=== PATIENT | male | born 1965 | race Caucasian/White ===

== ENCOUNTER 2020-06-01 10:27 | Emergency (ER) | payer BC, OTHER ==
[2020-06-01] MEDS ORDERED: ACETAMINOPHEN 325 MG TABLET PO ONE (10:56)
[2020-06-01] MEDS ORDERED: NITROGLYCERIN 2% OINTMENT 1 GM PACKET TP ONE (10:57)
[2020-06-01 11:00] LABS: ABSOLUTE BASOPHILS # (AUTO) 0.1 10^3/uL (0.0-0.2); ABSOLUTE EOSINOPHILS # (AUTO) 0.1 10^3/uL (0.0-0.6); ABSOLUTE LYMPHOCYTES (AUTO) 2.1 10^3/uL (0.5-4.7); ABSOLUTE MONOCYTES (AUTO) 0.8 10^3/uL (0.1-1.4); ABSOLUTE NEUT (AUTO) 7.5 10^3/uL (1.7-8.2); BASOPHILS % (AUTO) 0.6 % (0-2); EOSINOPHILS % (AUTO) 1.2 % (0-6); HEMATOCRIT 48.7 % (37.9-51.0); HEMOGLOBIN 17.1 g/dL (13.5-17.0); LYMPHOCYTES % (AUTO) 19.7 % (13-45); MEAN CORPUSCULAR HEMOGLOBIN 31.9 pg (27.0-33.4); MEAN CORPUSCULAR HGB CONC 35.1 g/dL (32.0-36.0); MEAN CORPUSCULAR VOLUME 91 fl (80-97); MONOCYTES % (AUTO) 7.5 % (3-13); PLATELET COUNT 250 10^3/uL (150-450); RED BLOOD COUNT 5.36 10^6/uL (4.35-5.55); RED CELL DISTRIBUTION WIDTH 13.6 % (11.5-14.0); TOTAL CELLS COUNTED % (AUTO) 100 %; WHITE BLOOD COUNT 10.6 10^3/uL (4.0-10.5)
--- NOTE | 2020-06-01 11:03 | ER Document Report ---
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 Patient reports that over the past few weeks he has had some chest tightness. Patient reports that this was originally associated after drinking or eating but over the past few days it has changed. Patient reports last night he was unable to find a posi tion of comfort due to the discomfort. Patient reports that this is a tightness in the center/left side of his chest that does intermittently radiate down the left arm. Patient was given 324 of aspirin prior to arrival at his primary care physician's office. He states that he was also giving 2 sprays of nitroglycerin by EMS which did improve the pain. Patient does have a headache now. Patient denies shortness of breath or swelling of his lower extremities. - Related Data Allergies/Adverse Reactions: No Known Allergies Allergy (Unverified 06/01/20 10:34) Home Medications: simvastatin, metheltrexate, bisoprolol Past Medical History - General Information source: Patient - Social History Smoking Status: Never Smoker Chew tobacco use (# tins/day): No Frequency of alcohol use: Social Drug Abuse: None Lives with: Family, Spouse/Significant other Family History: None Patient has homicidal ideation: No - Past Medical History Cardiac Medical History: Reports: Hx Hypercholesterolemia, Hx Hypertension Pulmonary Medical History: Reports: None EENT Medical History: Reports: None Neurological Medical History: Reports: None Endocrine Medical History: Reports: None Renal/ Medical History: Reports: None Malignancy Medical History: Reports None GI Medical History: Reports: None Musculoskeletal Medical History: Reports None Skin Medical History: Reports None Psychiatric Medical History: Reports: None Traumatic Medical History: Reports: None Infectious Medical History: Reports: None Surgical Hx: Negative Review of Systems - Review of Systems Constitutional: No symptoms reported EENT: No symptoms reported Cardiovascular: See HPI Respiratory: No symptoms reported Gastrointestinal: No symptoms reported Genitourinary: No symptoms reported Male Genitourinary: No symptoms reported Musculoskeletal: No symptoms reported Skin: No symptoms reported Hematologic/Lymphatic: No symptoms reported Neurological/Psychological: No symptoms reported Physical Exam - Vital signs Vitals: Temp 98.4 F 06/01/20 10:31 - Notes Notes: GENERAL: Well-appearing, well-nourished and in no acute distress. HEAD: Atraumatic, normocephalic. EYES: Pupils equal round and reactive to light, extraocular movements intact, sclera anicteric, conjunctiva are normal. ENT: Nares patent, oropharynx clear without exudates. Moist mucous membranes. NECK: Normal range of motion, supple without lymphadenopathy or JVD. LUNGS: Breath sounds clear to auscultation bilaterally and equal. No wheezes rales or rhonchi. HEART: Regular rate and rhythm without murmurs, rubs or gallops. No chest wall tenderness to palpation. ABDOMEN: Soft, nontender, normoactive bowel sounds. No guarding, no rebound. No masses appreciated. BACK: No cervical, thoracic, lumbar midline tenderness. No saddle anesthesia, normal distal neurovascular exam. GENITOURINARY: Deferred. EXTREMITIES: Normal range of motion, no pitting or edema. No clubbing or cyanosis. NEUROLOGICAL: Cranial nerves II through XII grossly intact. Normal speech, normal gait. PSYCH: Normal mood, normal affect. SKIN: Warm, Dry, normal turgor, no rashes or lesions noted. Course - Re-evaluation Re-evalutation: 06/01/20 12:06 Patient troponin is elevated at 2.2. Patient reports his chest discomfort is a 1 out of 5. Patient does have the Nitropaste in place. Patient is in no acute distress. I did speak with Dr. Moseley, hospitalist who recommends calling vision specialist. Patient states if he needs to be transferred out to another facility you would request [facility]. 06/01/20 12:[address] Hamilton, the vision specialist. He is in house and would come down and see patient in room 11. He does state due to the patient's EKG changes, continued pain he does request that the patient be transferred out of this facility to a higher level of care. He also recommends starting a heparin and nitro drip. I have ordered coagulation studies. 06/01/20 12:19 Dr. Landis with cardiology is at the bedside. 06/01/20 12:29 Spoke with transfer center at [facility], will page cardiology and return my call. 10/09/20 13:04 I did speak with Dr. Kal Vasques who is a vision specialist at [facility]. He will accept the patient. Patient and family were updated on plan of care. 06/01/20 13:39 Transport is at the bedside with the patient. Patient is alert and oriented. Denies chest pain at this time. was updated on plan of care. - Vital Signs Vital signs: Temp Pulse Resp BP Pulse Ox 98.6 F 80 13 102/75 94 06/01/20 10:44 06/01/20 10:44 06/01/20 13:30 06/01/20 13:30 06/01/20 13:30 - Laboratory Result Diagrams: 06/01/20 10:15 06/01/20 10:15 Laboratory results interpreted by me: 06/01/20 06/01/20 06/01/20 10:15 10:15 10:15 WBC 10.6 H Hgb 17.1 H Total Bilirubin 1.5 H Creatine Kinase 273 H CK-MB (CK-2) 19.80 H Total Protein 8.3 H Patient does not have any significant leukocytosis or anemia. Patient's electrolytes are within normal function. Patient does have an elevated troponin at 2.28. Laboratory 06/01/20 06/01/20 06/01/20 10:15 10:15 10:15 WBC 10.6 H RBC 5.36 Hgb 17.1 H Hct 48.7 MCV 91 MCH 31.9 MCHC 35.1 RDW 13.6 Plt Count 250 Lymph % (Auto) 19.7 Scurry % (Auto) 7.5 Eos % (Auto) 1.2 Baso % (Auto) 0.6 Absolute Neuts (auto) 7.5 Absolute Lymphs (auto) 2.1 Absolute Monos (auto) 0.8 Absolute Eos (auto) 0.1 Absolute Basos (auto) 0.1 Seg Neutrophils % 71.0 PT INR APTT Sodium 140.4 Potassium 4.2 Chloride 102 Carbon Dioxide 27 Anion Gap 11 BUN 9 Creatinine 0.73 Est GFR ( Amer) > 60 Est GFR (MDRD) Non-Af > 60 Glucose 104 Calcium 9.7 Total Bilirubin 1.5 H Direct Bilirubin 0.2 Neonat Total Bilirubin Not Reportable Neonat Direct Bilirubin Not Reportable Neonat Indirect Bili Not Reportable AST 57 ALT 37 Alkaline Phosphatase 85 Creatine Kinase 273 H CK-MB (CK-2) 19.80 H Troponin I 2.280 Total Protein 8.3 H Albumin 5.0 06/01/20 10:15 WBC RBC Hgb Hct MCV MCH MCHC RDW Plt Count Lymph % (Auto) Scurry % (Auto) Eos % (Auto) Baso % (Auto) Absolute Neuts (auto) Absolute Lymphs (auto) Absolute Monos (auto) Absolute Eos (auto) Absolute Basos (auto) Seg Neutrophils % PT 13.0 INR 0.96 APTT 27.9 Sodium Potassium Chloride Carbon Dioxide Anion Gap BUN Creatinine Est GFR ( Amer) Est GFR (MDRD) Non-Af Glucose Calcium Total Bilirubin Direct Bilirubin Neonat Total Bilirubin Neonat Direct Bilirubin Neonat Indirect Bili AST ALT Alkaline Phosphatase Creatine Kinase CK-MB (CK-2) Troponin I Total Protein Albumin - Diagnostic Test Radiology reviewed: Reports reviewed Radiology results interpreted by me: 06/01/20 13:05 Chest X-Ray 06/01/20 10:31 IMPRESSION: NO ACUTE RADIOGRAPHIC FINDING IN THE CHEST. - EKG Interpretation by Me Additional EKG results interpreted by me: 06/01/20 14:31 Patient's EKG shows a sinus rhythm with a heart rate of 84. Patient's AL interval is 152, QT is 360 and QTc is 426. Patient has a normal axis deviation. Patient does have ST depression in multiple leads, V4, V5 and V6. When comparing to the EKG that was performed at the physician's office prior to arrival the ST depression did improve significantly with nitroglycerin. Discharge - Discharge Clinical Impression: NSTEMI (non-ST elevated myocardial infarction) Chest pain Qualifiers: Chest pain type: unspecified Qualified Code(s): R07.9 - Chest pain, unspecified Condition: Stable Disposition: [facility] Referrals: SADIA SNOW MD [Primary Care Provider] - Follow up as needed
[2020-06-01 11:15] LABS: ALKALINE PHOSPHATASE 85 U/L (38-126); ANION GAP 11 (5-19); ASPARTATE AMINO TRANSFERASE 57 U/L (17-59); BILIRUBIN,DIRECT 0.2 mg/dL (0.0-0.4); BILIRUBIN,TOTAL 1.5 mg/dL (0.2-1.3); BLOOD UREA NITROGEN 9 mg/dL (7-20); CALCIUM 9.7 mg/dL (8.4-10.2); CARBON DIOXIDE 27 mmol/L (22-30); CHLORIDE 102 mmol/L (98-107); CREATINE KINASE 273 U/L (55-170); GLUCOSE 104 mg/dL (75-110); POTASSIUM 4.2 mmol/L (3.6-5.0); TOTAL PROTEIN 8.3 g/dL (6.3-8.2)
--- NOTE | 2020-06-01 11:15 | RADIOLOGY REPORT (SQ) ---
EXAM DESCRIPTION: CHEST SINGLE VIEW IMAGES COMPLETED DATE/TIME: 06/01/2020 10:43 am REASON FOR STUDY: chest pain COMPARISON: None. EXAM PARAMETERS: NUMBER OF VIEWS: One view. TECHNIQUE: Single frontal radiographic view of the chest acquired. RADIATION DOSE: NA LIMITATIONS: None. FINDINGS: LUNGS AND PLEURA: No opacities, masses or pneumothorax. No pleural effusion. MEDIASTINUM AND HILAR STRUCTURES: No masses. Contour normal. HEART AND VASCULAR STRUCTURES: Heart normal in size. Normal vasculature. BONES: No acute findings. HARDWARE: None in the chest. OTHER: No other significant finding. IMPRESSION: NO ACUTE RADIOGRAPHIC FINDING IN THE CHEST. TECHNICAL DOCUMENTATION: JOB ID: [id number] 2010 [employer]- All Rights Reserved Reading location - IP/workstation name: [email or web address]
[2020-06-01 11:25] LABS: CREATINE KINASE MB 19.8 ng/mL (<4.55)
[2020-06-01 11:28] LABS: TROPONIN I 2.28 ng/mL
[2020-06-01] MEDS ORDERED: NITROGLYCERIN/D5W 50 MG/250 ML RTUINJ IV PRN (12:26)
[2020-06-01 12:46] LABS: INTERNATIONAL RATION (INR) 0.96
[2020-06-01 12:47] LABS: PARTIAL THROMBOPLASTIN TIME 27.9 SEC (23.5-35.8)
[2020-06-01] MEDS ORDERED: HEPARIN SODIUM,PORCINE/D5W 25,000 UNIT/250 ML RTUINJ IV PRN (13:00)
[2020-06-01] MEDS ORDERED: HEPARIN SOD (PORCINE) 1,000 UNIT/ML 10 ML VIAL IV ONE (13:00)
[2020-06-01 13:33] VITALS: BP 102/75
--- NOTE | 2020-06-02 10:09 | EKG REPORT ---
SEVERITY:- ABNORMAL ECG - SINUS RHYTHM PROBABLE LEFT ATRIAL ABNORMALITY REPOL ABNRM SUGGESTS ISCHEMIA, ANT-LAT LEADS : Confirmed by: Rayna Zepeda MD 02-Jun-2020 10:08:48
== END 2020-06-01 13:49 | disposition short-term general hospital (02) ==
LOC: ER 10:27
DX: I21.4 Non-ST elevation (NSTEMI) myocardial infarction (principal); I10 Essential (primary) hypertension; R07.89 Other chest pain; R51.9 Headache, unspecified; M31.30 Wegener's granulomatosis without renal involvement; E78.00 Pure hypercholesterolemia, unspecified; Z79.899 Other long term (current) drug therapy
CPT/HCPCS: 93005; 99285; 96375; 96365; 96368; 36415; 82553; 82550; 85025; 85610; 85730; 80053; 84484; 71045; 93010; J1644 ×2; J3490